=== PATIENT | male | born 1950 | race Caucasian/White ===

== ENCOUNTER 2021-10-31 10:55 | Observation (INO) | payer OTHER ==
[~2021-10-31] VITALS: Ht 167.6 cm; Wt 96.5 kg
[~2021-10-31 10:55] MED LIST: ALLO300 PO; ASPI325 PO; ATEN50 PO; ATOR80 PO; CLOP75 PO; CODACE30 PO; Diabeta2.5 MG PO; ERGO400 PO; ESOM20; HYDCHL25 PO; INDO50 PO; INSULANPEN; ISOMON60ER PO; LISI20 PO; METF500C PO; METO10 PO; NITR.6SL SL; RAMI1.25; RAMI2.5 PO; RANO500T PO; SULTRIDS PO; TELM80; TRAZ100; TRAZ100 PO
[2021-10-31] MEDS ORDERED: AMLODIPINE BESYL5 MG PO (11:46)
[2021-10-31] MEDS ORDERED: ROSUVASTATIN CA20 MG PO (11:47)
[2021-10-31] MEDS ORDERED: METOPROLOL TART25 MG PO (11:48)
[2021-10-31] MEDS ORDERED: DULOXETINE HCL60 M1 PO (11:49)
[2021-10-31] MEDS ORDERED: FARXIGA5 MG PO (11:50)
[2021-10-31] MEDS ORDERED: BASAGLAR K100 UNIT/3 SC (11:51)
[2021-10-31 11:52] LABS: BASOPHILS ABSOLUTE AUTO 0.07 K/mm3 (0.00-0.23); BASOPHILS PERCENT AUTO 1 % (0-2); EOSINOPHILS ABSOLUTE AUTO 0.31 K/mm3 (0.00-0.68); EOSINOPHILS PERCENT AUTO 4 % (0-6); Hematocrit 45.7 % (37.0-53.0); Hemoglobin 15.6 g/dL (13.5-17.5); IMMATURE GRAN ABSOLUTE AUTO 0.02 K/mm3 (0.00-0.10); IMMATURE GRAN PERCENT AUTO 0 % (0-1); LYMPHOCYTES ABSOLUTE AUTO 1.79 K/mm3 (0.84-5.20); LYMPHOCYTES PERCENT AUTO 24 % (21-46); MONOCYTES ABSOLUTE AUTO 0.64 K/mm3 (0.16-1.47); MONOCYTES PERCENT AUTO 8 % (4-13); Mean Corpuscular HGB 29.3 pg (26.0-34.0); Mean Corpuscular HGB Conc 34.1 g/dL (31.5-36.5); Mean Corpuscular Volume 86 fL (80-100); Mean Platelet Volume 10.3 fL (9.1-12.4); NEUTROPHILS ABSOLUTE AUTO 4.75 K/mm3 (1.96-9.15); NEUTROPHILS PERCENT AUTO 63 % (41-73); Platelet Count 167 K/mm3 (150-400); RDW Coefficient Variation 12.1 % (11.7-14.2); RDW Standard Deviation 38.1 fL (35.1-46.3); Red Blood Cell Count 5.32 M/mm3 (4.30-5.90); White Blood Cell Count 7.58 K/mm3 (4.00-11.30)
[2021-10-31 12:17] LABS: Magnesium, Blood 2.2 mg/dL (1.6-2.4)
[2021-10-31 12:27] LABS: Albumin, Blood 3.5 g/dL (3.4-5.0); Albumin/Globulin Ratio 1.2 (0.8-1.8); Bilirubin, Total 0.4 mg/dL (0.1-1.0); Bun/Creatinine Ratio 19.1 (12.0-20.0); Calcium, Blood 8.8 mg/dL (8.5-10.1); Creatinine, Blood 2.46 mg/dL (0.60-1.20); Potassium, Blood 6.3 mmol/L (3.5-5.5); Total Protein, Blood 6.5 g/dL (6.4-8.2)
[2021-10-31 17:16] LABS: Bun/Creatinine Ratio 17.1 (12.0-20.0); Creatinine, Blood 2.58 mg/dL (0.60-1.20); Potassium, Blood 5.5 mmol/L (3.5-5.5)
--- NOTE | 2021-10-31 18:00 | NUR ---
SHIFT SUMMARY PT TO UNIT FROM ED. PT A&O, FOLLOWS COMMANDS, INDEPENDENT. PLACED ON TELE, SR 60'S, NO CP. PT C/O SOB, STATES ALWAYS SOB, ON RA. SBP IN 90'S, PTS BASELINE. NO NEEDS VOICED AT THIS TIME. WILL CONTINUE TO MONITOR.
--- NOTE | 2021-11-01 05:42 | NUR ---
PT IS A/O, IND IN ROOM. DENIES PAIN, SOB. TELE MONITOR, HYPOTENSIVE T/O SHIFT. POSSIBLE D/C TODAY.
[2021-11-01 05:59] LABS: BASOPHILS ABSOLUTE AUTO 0.06 K/mm3 (0.00-0.23); BASOPHILS PERCENT AUTO 1 % (0-2); EOSINOPHILS ABSOLUTE AUTO 0.39 K/mm3 (0.00-0.68); EOSINOPHILS PERCENT AUTO 6 % (0-6); Hematocrit 42.7 % (37.0-53.0); Hemoglobin 13.9 g/dL (13.5-17.5); IMMATURE GRAN ABSOLUTE AUTO 0.02 K/mm3 (0.00-0.10); IMMATURE GRAN PERCENT AUTO 0 % (0-1); LYMPHOCYTES ABSOLUTE AUTO 1.76 K/mm3 (0.84-5.20); LYMPHOCYTES PERCENT AUTO 29 % (21-46); MONOCYTES ABSOLUTE AUTO 0.66 K/mm3 (0.16-1.47); MONOCYTES PERCENT AUTO 11 % (4-13); Mean Corpuscular HGB Conc 32.6 g/dL (31.5-36.5); Mean Corpuscular Volume 89 fL (80-100); Mean Platelet Volume 10.7 fL (9.1-12.4); NEUTROPHILS ABSOLUTE AUTO 3.22 K/mm3 (1.96-9.15); NEUTROPHILS PERCENT AUTO 53 % (41-73); Platelet Count 135 K/mm3 (150-400); RDW Coefficient Variation 12.2 % (11.7-14.2); Red Blood Cell Count 4.79 M/mm3 (4.30-5.90); White Blood Cell Count 6.11 K/mm3 (4.00-11.30)
[2021-11-01 06:25] LABS: Magnesium, Blood 2.4 mg/dL (1.6-2.4)
[2021-11-01 06:26] LABS: Albumin/Globulin Ratio 1.2 (0.8-1.8); Bilirubin, Total 0.4 mg/dL (0.1-1.0); Bun/Creatinine Ratio 20.7 (12.0-20.0); Calcium, Blood 8.9 mg/dL (8.5-10.1); Creatinine, Blood 2.41 mg/dL (0.60-1.20); Globulin, Blood 2.6 g/dL (2.2-4.0); Potassium, Blood 5.8 mmol/L (3.5-5.5); Total Protein, Blood 5.6 g/dL (6.4-8.2)
--- NOTE | 2021-11-01 11:29 | NUR ---
DISCHARGE NOTE MR ELIZALDE IS A&OX4, NO C/O CP TODAY, NO NEW SYMPTOMS, SAME DUTTA THAT HE SAID IS BASELINE FOR HIM. DISCHARGE INSTRUCTIONS GIVEN, VERBAL AND WRITTEN. [place] VERBALISED GOOD UNDERSTANDING OF INSTRUCTIONS. PIV REMOVED INTACT. TELEMETRY REMOVED. PT GETTING DRESSED, W/C RIDE THEN HE IS PLANNING TO DRIVE HIMSELF HOME. NO OTHER CONCERNS VOICED PRE DISCHARGE.
== END 2021-11-01 11:55 | disposition home or self-care (01) ==
LOC: ER 10:55 → MEDS 10:56
PROVIDERS: Nurse Practitioner Acute Care; Physician Assistant; ADMIT Hospitalist
DX: E87.5 Hyperkalemia (principal); I25.10 Atherosclerotic heart disease of native coronary artery without angina pectoris; E78.5 Hyperlipidemia, unspecified; I12.9 Hypertensive chronic kidney disease with stage 1 through stage 4 chronic kidney disease, or unspecified chronic kidney disease; N18.4 Chronic kidney disease, stage 4 (severe); E11.22 Type 2 diabetes mellitus with diabetic chronic kidney disease; F17.210 Nicotine dependence, cigarettes, uncomplicated
CPT/HCPCS: 36415; 80048; 80053; 82947; 83735; 83880; 85025; 93005; 93010; 94644; 94664; 96361; 96372; 96374; 96375; 99285-25; A9270; G0378; J1644; J1815; J1940; J7030